=== PATIENT | male | born 1980 | race Caucasian/White ===

== ENCOUNTER 2018-03-25 09:07 | Outpatient (CLI) | payer OTHER | END 2018-03-25 09:20 | disposition home or self-care (01) | LOC: LAB 09:07 | DX: N30.00 Acute cystitis without hematuria (principal) ==

== ENCOUNTER 2018-03-25 10:08 | Outpatient (CLI) | payer OTHER | END 2018-03-25 10:30 | disposition home or self-care (01) | LOC: SONOGRAMA 10:08 | DX: R22.9 Localized swelling, mass and lump, unspecified (principal) ==